=== PATIENT | female | born 1975 | race Caucasian/White ===

== ENCOUNTER → 2016-08-05 | Outpatient (CLI) | payer BC ==
--- NOTE | 2016-08-05 13:21 | XR ---
EXAMINATION TYPE: XR chest 2V DATE OF EXAM: 08/05/2016 COMPARISON: NONE HISTORY: Tachycardia on pleural effusion per order. TECHNIQUE: Frontal and lateral views of the chest are obtained. FINDINGS: There is no focal air space opacity, pleural effusion, or pneumothorax seen. The cardiac silhouette size is within normal limits. The osseous structures are intact. There is partial visual ization of surgical clips in the abdomen on 2 views. IMPRESSION: No acute cardiopulmonary process.
== END ==
LOC: RADXRMAIN 12:13
PROVIDERS: ATTEND Family Medicine
DX: R06.02 Shortness of breath (principal)
CPT/HCPCS: 71020

== ENCOUNTER → 2016-08-19 | Outpatient (CLI) | payer BC ==
--- NOTE | 2016-08-19 13:14 | CT ---
EXAMINATION TYPE: CT angio chest DATE OF EXAM: 08/19/2016 12:56 PM COMPARISON: NONE HISTORY: Tachycardia, SOB, wt gain CT DLP: 357.5 mGycm Automated exposure control for dose reduction was used. CONTRAST: CTA scan of the thorax is performed with IV Contrast, patient injected with 100 mL of Omnipaque 350, pulmonary embolism protocol. . FINDINGS: The lungs are clear. There is no significant axillary, internal mammary, mediastinal or hilar adenopathy. There is no evidence of pulmonary embolus. The aorta is normal in caliber without evidence of dissection. There is no pleural or pericardial fluid. Visualized portions of the upper abdomen are clear. There is minimal hypertrophic spondylosis within the spine. IMPRESSION: THIS EXAMINATION IS NEGATIVE FOR PULMONARY EMBOLUS.
== END | disposition home or self-care (01) ==
LOC: RADCTMAIN 12:05
PROVIDERS: ATTEND Family Medicine
DX: R00.0 Tachycardia, unspecified (principal)
CPT/HCPCS: 71275; Q9967

== ENCOUNTER → 2017-06-20 | Outpatient (CLI) | payer BC ==
--- NOTE | 2017-06-20 12:00 | XR ---
EXAMINATION TYPE: XR finger RT DATE OF EXAM: 06/20/2017 COMPARISON: NONE HISTORY: Right second digit infection pain. TECHNIQUE: 3 views of the second digit were performed FINDINGS: There is focal soft tissue swelling of the distal aspect of the second digit without subcut aneous emphysema or radiopaque foreign body. No evidence of acute fracture or dislocation of the seco nd digit. No periosteal reaction or cortical erosion to indicate radiographic sequela of osteomyeliti s. IMPRESSION: Focal soft tissue swelling of the distal aspect of the second digit with no current radio graphic sequela of osteomyelitis.
== END | disposition home or self-care (01) ==
LOC: RADXRMAIN 11:10
PROVIDERS: ATTEND Family Medicine
DX: M79.89 Other specified soft tissue disorders (principal)

== ENCOUNTER → 2017-08-25 | Outpatient (CLI) | payer BC ==
[2017-08-25 13:10] LABS: T4, Free (Free Thyroxine) 0.92 ng/dL (0.78-2.19)
[2017-08-31 04:37] LABS: Metanephrine, Free <25 pg/mL (< OR = 57); Normetanephrine, Free 54 pg/mL (< OR = 148); Total, Free (MN + NMN) 54 pg/mL (< OR = 205)
== END | disposition home or self-care (01) ==
LOC: LABWHC1 11:38
PROVIDERS: ATTEND Internal Medicine Clinical Cardiac Electrophysiology
DX: R00.2 Palpitations (principal)
CPT/HCPCS: 36415; 82088; 82533; 83835; 84439; 84443; 85652

== ENCOUNTER 2017-09-05 08:51 | Day surgery (SDC) | payer BC ==
[2017-09-01 09:31] VITALS: BMI 34.3
[~2017-09-05 08:51] MED LIST: SODIUM CHLORIDE 0.9% 1,000 ML IV SCH
[2017-09-05 08:59] VITALS: BP 127/78; RESP 16; TEMP 98.2
[2017-09-05] MEDS ORDERED: SODIUM CHLORIDE 0.9% 500 ML IV ONE (09:39)
[2017-09-05 11:21] VITALS: PULSE 99
--- NOTE | 2017-09-05 12:26 | P.PCN ---
Preoperative Diagnosis: Tilt table test procedure Indication for the procedure recurrent dizzy spells, near-syncope, rapid heartbeat Baseline Twelve-lead ECG Sinus rhythm 88 beats a minute normal RI narrow QRS normal ST segments Tilt table test Baseline blood pressure 124/67 mmHg, Baseline heart rate 88-98 beats a minute sinus rhythm, regular Patient was tilted upright and I'll of 70 per protocol there is a mild increase in heart rate to the low 100s ranging from 95-105 beats a minute, no change in blood pressure She was laid supine at the end of the procedure Impression Mild Orthostatic intolerance Mild increase in heart rate with upright position but did not meet criteria for postural tachycardia syndrome. No evidence for neurocardiogenic syncope No evidence for dysautonomia Plan Iwouldrecommend increasing fluid and saltintake core body strengthening, weight training especially of the lower extremity muscles, Endurance training rather than aerobic training I have prescribed nadolol between 10-20 mg by mouth daily for supportive therapy Discussed with the patient in detail Disposition: same day
== END 2017-09-05 11:21 | disposition home or self-care (01) ==
LOC: CATHEP 08:51
PROVIDERS: ATTEND Internal Medicine Clinical Cardiac Electrophysiology
DX: R42 Dizziness and giddiness (principal); R55 Syncope and collapse; R00.0 Tachycardia, unspecified; R00.2 Palpitations; Z82.49 Family history of ischemic heart disease and other diseases of the circulatory system; Z79.899 Other long term (current) drug therapy
CPT/HCPCS: 81025; 93660

== ENCOUNTER → 2018-02-17 | Outpatient (CLI) | payer BC ==
--- NOTE | 2018-02-17 14:07 | MM ---
Reason for exam: screening (asymptomatic). Baseline mammogram. History: Took hormonal contraceptives beginning at age 23. Physical Findings: Nurse did not find any significant physical abnormalities on exam. MG 3D Screening Mammo W/Cad Bilateral CC and MLO view(s) were taken. There are scattered fibroglandular densities. Benign appearing bilateral calcifications. No suspicious abnormality. These results were verbally communicated with the patient and result sheet given to the patient on 02/17/18. ASSESSMENT: Benign, BI-RAD 2 RECOMMENDATION: Routine screening mammogram of both breasts in 1 year.
== END | disposition home or self-care (01) ==
LOC: RADMAMWWP 13:10
PROVIDERS: ATTEND Family Medicine
DX: Z12.31 Encounter for screening mammogram for malignant neoplasm of breast (principal)
CPT/HCPCS: 77063; 77067

== ENCOUNTER → 2019-03-15 | Outpatient (CLI) | payer BC ==
--- NOTE | 2019-03-16 11:13 | MM ---
Reason for exam: screening (asymptomatic). Last mammogram was performed 1 year and 1 month ago. History: Taking hormonal contraceptives beginning at age 23. Physical Findings: A clinical breast exam by your physician is recommended on an annual basis and results should be correlated with mammographic findings. MG 3D Screening Mammo W/Cad Bilateral CC and MLO view(s) were taken. Prior study comparison: February 17, 2018, bilateral MG 3d screening mammo w/cad. There are scattered fibroglandular densities. Benign appearing bilateral calcifications. No suspicious abnormality. No significant changes when compared with prior studies. ASSESSMENT: Benign, BI-RAD 2 RECOMMENDATION: Routine screening mammogram of both breasts in 1 year.
== END | disposition home or self-care (01) ==
LOC: RADMAMWWP 08:38
PROVIDERS: ATTEND Family Medicine
DX: Z12.31 Encounter for screening mammogram for malignant neoplasm of breast (principal)
CPT/HCPCS: 77063; 77067

== ENCOUNTER → 2020-04-03 | Outpatient (CLI) | payer OTHER ==
--- NOTE | 2020-04-04 13:58 | MM ---
Reason for exam: screening (asymptomatic). Last mammogram was performed 1 year and 1 month ago. History: Taking hormonal contraceptives beginning at age 23. Physical Findings: A clinical breast exam by your physician is recommended on an annual basis and results should be correlated with mammographic findings. MG 3D Screening Mammo W/Cad Bilateral CC and MLO view(s) were taken. Prior study comparison: March 15, 2019, bilateral MG 3d screening mammo w/cad. February 17, 2018, bilateral MG 3d screening mammo w/cad. There are scattered fibroglandular densities. Stable benign calcifications. There is no discrete abnormality. No significant changes when compared with prior studies. ASSESSMENT: Benign, BI-RAD 2 RECOMMENDATION: Routine screening mammogram of both breasts in 1 year.
== END | disposition home or self-care (01) ==
LOC: RADMAMWWP 15:18
PROVIDERS: ATTEND Family Medicine
DX: Z12.31 Encounter for screening mammogram for malignant neoplasm of breast (principal)
CPT/HCPCS: 77063; 77067

== ENCOUNTER → 2022-07-12 | Outpatient (CLI) | payer OTHER ==
--- NOTE | 2022-07-13 08:05 | MM ---
Reason for Exam: Screening (asymptomatic). Last mammogram was performed 2 year(s) and 3 month(s) ago. Patient History: Menarche at age 13. First Full-Term at age 29. Perimenopausal. Currently using Hormonal Contraceptives, starting at age 23. Risk Values: Melina 5 year model risk: 0.9%. NCI Lifetime model risk: 11.7%. Prior Study Comparison: 02/17/2018 Bilateral Screening Mammogram, [facility]. 03/15/2019 Bilateral Screening Mammogram, [facility]. 04/03/2020 Bilateral Screening Mammogram, [facility]. Tissue Density: There are scattered fibroglandular densities. Findings: Analyzed By CAD. Pattern appears stable and symmetrical. No suspicious groups of microcalcifications, spiculated or lobular masses, architectural distortion or other secondary signs of malignancy are mammographically apparent. Overall Assessment: Benign, BI-RAD 2 Management: Screening Mammogram of both breasts in 1 year. A negative mammogram report should not preclude additional follow up of suspicious palpable abnormalities. Patient should continue monthly self breast exam. A clinical breast exam by your physician is recommended on an annual basis and results should be correlated with mammographic findings. Electronically signed and approved by: Naseem Dalton D.O. Radiologis
== END | disposition home or self-care (01) ==
LOC: RADMAMWWP 08:41
PROVIDERS: ATTEND Family Medicine
DX: Z12.31 Encounter for screening mammogram for malignant neoplasm of breast (principal)
CPT/HCPCS: 77063; 77067

== ENCOUNTER 2022-10-12 07:05 | Day surgery (SDC) | payer OTHER ==
[2022-10-05 15:45] VITALS: BMI 41.1
[2022-10-12] MEDS ORDERED: MIDAZOLAM 2 MG/2 ML VIAL IV PRN (07:14)
[2022-10-12] MEDS ORDERED: LIDOCAINE 1% (10MG/ML) FOR IV START INTRADERMA PRN (07:14)
[2022-10-12 07:33] VITALS: TEMP 97.6
[2022-10-12] MEDS: LACTATED RINGERS 1,000 ML IV SCH ×2 (07:38→08:38)
[2022-10-12] MEDS ORDERED: PROPOFOL 10 MG/ML 20 ML VIAL IV ONE (08:39)
[2022-10-12] MEDS ORDERED: LIDOCAINE 2% INJ 20 MG/ML (2 ML VIAL) ONE (08:39)
--- NOTE | 2022-10-12 09:04 | P.PCN ---
Date of Procedure: 10/12/22 Procedure(s) Performed: Brief history: Patient is a pleasant 47-year-old white female scheduled for an elective upper endoscopy as well as colonoscopy as a part of evaluation of GERD and screening for colon cancer Procedure performed: Esophagogastroduodenoscopy with biopsy Colonoscopy Preoperative diagnosis: GERD Screening for colon cancer Anesthesia: [facility] Procedure: After informed consent was obtained from the patient was brought into the endoscopy unit and IV sedation was administered by anesthesia under continuous monitoring. Initially upper endoscopy was done. The Olympus GF 160 video endoscope was inserted inserted into the mouth and esophagus intubated without any difficulty and was gradually advanced into the stomach and duodenum and carefully examined. The bulb and second part of the duodenum appeared normal. Biopsies were done from the duodenum to rule out celiac disease. The scope was then withdrawn into the stomach adequately insufflated with air and upon careful examination the antrum had patchy areas of erythema consistent with gastritis and biopsies were done from this area. body, cardia and fundus appeared normal. The scope was then withdrawn into the esophagus. The GE junction was located at 40 cm to the incisors. It appeared regular with no erythema erosions or ulcerations. Rest of the esophagus appeared normal. Patient tolerated the procedure well. At this time the patient continued to remain sedation. Initial digital rectal examination was normal. Olympus CF 160 video colonoscope was then inserted into the rectum and gradually advanced to the cecum without any difficulty. Careful examination was performed as the scope was gradually being withdrawn. The prep was excellent. Terminal ileum was intubated and 20 cm visualized and appeared normal. The cecum, ascending colon, transverse colon, descending colon, sigmoid colon and rectum appeared normal. Retroflexion was performed in the rectum and no lesions were noted. Patient tolerated the procedure well. Impression: 1. Upper endoscopy revealed mild antral gastritis but no evidence of esophagitis or Braswell's esophagus 2. Colonoscopy was within normal limits with no evidence of colitis or colorectal neoplasia Recommendations: Findings of this examination were discussed with the patient as well as her family. She was advised to follow with the biopsy results. She will continue with omeprazole 20 mg daily and follow antireflux measures. Recommend repeat screening colonoscopy in 10 years.
[2022-10-12 09:15] VITALS: RESP 20
[2022-10-12 10:01] VITALS: BP 130/80; PULSE 88
== END 2022-10-12 09:58 | disposition home or self-care (01) ==
LOC: ORWHC2ENDO 07:05
PROVIDERS: ATTEND Internal Medicine Gastroenterology
DX: Z12.11 Encounter for screening for malignant neoplasm of colon (principal); K29.50 Unspecified chronic gastritis without bleeding; K21.9 Gastro-esophageal reflux disease without esophagitis; G43.909 Migraine, unspecified, not intractable, without status migrainosus; Z79.83 Long term (current) use of bisphosphonates; Z79.899 Other long term (current) drug therapy
CPT/HCPCS: 81025; 88305; 84703; 45378; 43239; J2704; J2001

== ENCOUNTER → 2022-12-27 | Outpatient (CLI) | payer OTHER ==
--- NOTE | 2022-12-27 15:51 | XR ---
EXAMINATION TYPE: XR cervical spine limited DATE OF EXAM: 12/27/2022 3:22 PM INDICATION: Patient age:Female; 47 years old; Reason for study: M54.81 OCCIPITAL NEURALGIA; [facility]. COMPARISON: None TECHNIQUE: The cervical spine was imaged in frontal, lateral, and odontoid projections. FINDINGS: The osseous structures show normal alignment without evidence of an acute fracture. The intervertebra l disk spaces are preserved. Pedicles are intact. Soft tissues are within normal limits. The odonto id appears intact. IMPRESSION: No fracture or dislocation.
== END | disposition home or self-care (01) ==
LOC: RADXRMAIN 14:45
PROVIDERS: ATTEND Family Medicine
DX: M54.81 Occipital neuralgia (principal)
CPT/HCPCS: 72040

== ENCOUNTER 2023-01-05 18:38 | Emergency (ER) | payer OTHER ==
--- NOTE | 2023-01-05 19:53 | ED ---
General Adult HPI - General Source: patient, RN notes reviewed <Denae Gr - Last Filed: 01/05/23 19:48> <Claudine Savage - Last Filed: 01/06/23 03:52> - General Stated complaint: abd pain - History of Present Illness Initial comments: 47 year old female presents to the emergency department with chief complaint of right upper abdominal pain. Patient states that this has been going on for around 2 months. She states that it has been a burning sensation but states today that it has changed in character to a pain. She states that it has been constant. Denies vomiting. She does report history of cholecystectomy. (Denae Gr) 47-year-old female presenting with chief complaint of abdominal pain. Patient states that she has had a constant burning sensation to the right upper quadrant ongoing for the last 2 months. Patient states that the pain is worse today. No injury or trauma. No nausea or vomiting. No chest pain or difficulty breathing. No diarrhea or constipation. No fevers or chills. Surgical history includes cholecystectomy. (Claudine Savage) - Related Data Home Medications Medication Instructions Recorded Confirmed Milnacipran HCl [Savella] 50 mg PO QAM 06/06/14 10/05/22 Phentermine/Topiramate [Qsymia 15 1 each PO DAILY 06/06/14 10/12/22 mg-92 mg Capsule] ALPRAZolam [Xanax] 0.25 mg PO DAILY PRN 09/01/17 10/12/22 Control Pill ? Name/Dose 1 tab PO QAM 10/05/22 10/05/22 Cholecalciferol (Vitamin D3) 125 mcg PO DAILY 10/05/22 10/05/22 [Vitamin D3 (125 MCG = 5,000 IU)] Cyanocobalamin (Vitamin B-12) 1,000 mcg PO DAILY 10/05/22 10/05/22 [Vitamin B-12] Docusate [Colace] 100 mg PO DAILY 10/05/22 10/05/22 Ferrous Sulfate [Slow Fe] 45 mg PO DAILY 10/05/22 10/05/22 Omeprazole Magnesium [PriLOSEC OTC] 20 mg PO QAM 10/05/22 10/12/22 Rizatriptan Benzoate [Maxalt] 10 mg PO DIRECTED PRN 10/05/22 10/12/22 nadoloL 20 mg PO QAM 10/05/22 10/05/22 Allergies Allergy/AdvReac Type Severity Reaction Status Date / Time No Known Allergies Allergy Verified 01/05/23 20:31 Review of Systems ROS Other: All systems not noted in ROS Statement are negative. <Denae Gr - Last Filed: 01/05/23 19:48> ROS Other: All systems not noted in ROS Statement are negative. <Claudine Savage - Last Filed: 01/06/23 03:52> ROS Statement: Those systems with pertinent positive or pertinent negative responses have been documented in the HPI. Past Medical History Past Medical History: GERD/Reflux, Skin Disorder Additional Past Medical History / Comment(s): Patient states a lot of heartburn, acid reflux and projectile vomiting, took Prilosec for 3 months and it resolved, recurred again as soon as she tried to stop Prilosec about a week ago, so started taking it again. Patient states irregular bowel movements for last 2 years, states liquidy stool, urgency, blood on toilet tissue. Hx tachycardia, shortness of breath. High Trigylcerides. Iron Saturation low. Generalized body aches. Occasional migraines. Mild Eczema/Psoriasis. History of Any Multi-Drug Resistant Organisms: None Reported Past Surgical History: Cholecystectomy Additional Past Surgical History / Comment(s): Procedures to both legs for problems with veins. Past Anesthesia/Blood Transfusion Reactions: Motion Sickness Past Psychological History: Anxiety, Depression Smoking Status: Never smoker Past Alcohol Use History: Rare Past Drug Use History: None Reported - Past Family History Mother Family Medical History: AFIB, Blood Disorder, Cancer Additional Family Medical History / Comment(s): Thyroid cancer, melanoma skin cancer. <Denae Gr - Last Filed: 01/05/23 19:48> General Exam <Denae Gr - Last Filed: 01/05/23 19:48> Limitations: no limitations General appearance: alert, in no apparent distress Head exam: Present: atraumatic, normocephalic, normal inspection Eye exam: Present: normal appearance, EOMI Neck exam: Present: normal inspection, full ROM Respiratory exam: Present: normal lung sounds bilaterally. Absent: respiratory distress, wheezes, rales, rhonchi, stridor Cardiovascular Exam: Present: regular rate, normal rhythm, normal heart sounds. Absent: systolic murmur, diastolic murmur, rubs, gallop, clicks GI/Abdominal exam: Present: soft. Absent: distended, tenderness, guarding, rebound, rigid Neurological exam: Present: alert, oriented X3 Psychiatric exam: Present: normal affect, normal mood Skin exam: Present: warm, dry, intact, normal color. Absent: rash <Claudine Savage - Last Filed: 01/06/23 03:52> - General Exam Comments Initial Comments: Visual Physical Exam Vital signs reviewed General: Well-appearing, nontoxic, no acute distress. Head: Normocephalic, atraumatic Eyes: PERRLA, EOMI ENT: Airway patent Chest: Nonlabored breathing Skin: No visual rash, normal skin tone Neuro: Alert and oriented 3 Musculoskeletal: No gross abnormalities (Denae Gr) Course Vital Signs 01/05/23 01/06/23 20:26 02:46 Temperature 98.9 F 98.8 F Pulse Rate 93 81 Respiratory 18 16 Rate Blood Pressure 134/76 114/70 O2 Sat by Pulse 100 98 Oximetry Medical Decision Making <Denae Gr - Last Filed: 01/05/23 19:48> - Lab Data Result diagrams: 01/05/23 20:32 01/05/23 20:32 <Claudine Savage - Last Filed: 01/06/23 03:52> - Medical Decision Making I preformed the quick note portion of this chart. Electronically signed by Denae Gr PA-C. (Denae Gr) Was pt. sent in by a medical professional or institution ([facility], W[employer] CE[employer]AR STOCK CLERK, urgent care, hospital, or prison...) When possible be specific @ -No Did you speak to anyone other than the patient for history (EMS, parent, family, police, friend...)? What history was obtained from this source @ -No Did you review nursing and triage notes (agree or disagree)? Why? @ -I reviewed and agree with nursing and triage notes Were old charts reviewed (outside hosp., previous admission, EMS record, old EKG, old radiological studies, urgent care reports/EKG's, prison records)? Report findings @ -No old charts were reviewed Differential Diagnosis (chest pain, altered mental status, abdominal pain women, abdominal pain men, vaginal bleeding, weakness, fever, dyspnea, syncope, headache, dizziness, GI bleed, back pain, seizure, CVA, palpatations, mental health, musculoskeletal)? @ -[facility] Differential Abdominal Pain Women: Appendicitis, Cholecystitis, diverticulosis, ischemic bowel, pancreatitis, hepatitis, UTI, gastroenteritis, AAA, incarcerated hernia, bowel obstruction, constipation, inflammatory bowel, hepatitis, peptic ulcer disease, splenic infarction, perforated viscus, vulvitis, ovarian torsion, PID, kidney stone, placenta abruption... This is not meant to be an all-inclusive list EKG interpreted by me (3pts min.). @ -As above X-rays interpreted by me (1pt min.). @ -None done CT interpreted by me (1pt min.). @ -The liver is heterogenous with a suggestion of hepatic steatosis. No focal abnormality. Cholecystectomy. No biliary dilatation. No bowel obstruction. No asymmetric bowel mucosal abnormality. No free intraperitoneal fluid or pn eumoperitoneum. U/S interpreted by me (1pt. min.). @ -None done What testing was considered but not performed or refused? (CT, X-rays, U/S, labs )? Why? @ -None What meds were considered but not given or refused? Why? @ -None Did you discuss the management of the patient with other professionals (professionals i.e. , PA, W[employer] CE[employer]AR STOCK CLERK, lab, RT, psych nurse, social media intern, chief physical therapist, teacher, electorate officer, hospice case manager)? Give summary @ -No Was smoking cessation discussed for >3mins.? @ -No Was critical care preformed (if so, how long)? @ -No Were there social determinants of health that impacted care today? How? (Homelessness, low income, unemployed, alcoholism, drug addiction, transportation, low edu. Level, literacy, decrease access to med. care, fci, rehab)? @ -No Was there de-escalation of care discussed even if they declined (Discuss DNR or withdrawal of care, Hospice)? DNR status @ -No What co-morbidities impacted this encounter? (DM, HTN, Smoking, COPD, CAD, Cancer, CVA, ARF, Chemo, Hep., AIDS, mental health diagnosis, sleep apnea, morbid obesity)? @ -None Was patient admitted / discharged? Hospital course, mention meds given and route, prescriptions, significant lab abnormalities, going to OR and other pertinent info. @ -47-year-old female presenting with chief complaint of right upper quadrant pain. History of cholecystectomy. Pain is been ongoing for 2 months. Physical exam is conducted. WBC 15.4. CMP unremarkable. Urine shows signs of contamination with negative hCG. CT shows evidence of hepatic steatosis but no acute abnormality. Patient is educated on today's findings. Instructed to follow-up with PCP. Follow-up with PCP. Report back to ER with any new or worse riley symptoms. Discussed return parameters and answered all questions. Patient conveyed verbal understanding and agreed to the plan. I discussed this case in detail with my attending Dr. Alvares Undiagnosed new problem with uncertain prognosis? @ -No Drug Therapy requiring intensive monitoring for toxicity (Heparin, Nitro, Insulin, Cardizem)? @ -No Were any procedures done? @ -No Diagnosis/symptom? @ -Hepatic steatosis Acute, or Chronic, or Acute on Chronic? @ -Acute Uncomplicated (without systemic symptoms) or Complicated (systemic symptoms)? @ -uncomplicated Side effects of treatment? @ -No Exacerbation, Progression, or Severe Exacerbation? @ -No Poses a threat to life or bodily function? How? (Chest pain, [place], [place], pneumonia, PE, COPD, DKA, ARF, appy, cholecystitis, CVA, Diverticulitis, Homicidal, Suicidal, threat to staff... and all critical care pts) @ -Low likelihood (Claudine Savage) - Lab Data Lab Results 01/05/23 01/05/23 01/05/23 Range/Units 20:32 20:32 20:32 WBC 15.4 H (3.8-10.6) k/uL RBC 5.12 (3.80-5.40) m/uL Hgb 14.4 (11.4-16.0) gm/dL Hct 43.4 (34.0-46.0) % MCV 84.9 (80.0-100.0) fL MCH 28.2 (25.0-35.0) pg MCHC 33.3 (31.0-37.0) g/dL RDW 13.5 (11.5-15.5) % Plt Count 315 (150-450) k/uL MPV 7.5 Neutrophils % 65 % Lymphocytes % 26 % Monocytes % 5 % Eosinophils % 2 % Basophils % 0 % Neutrophils # 10.0 H (1.3-7.7) k/uL Lymphocytes # 4.1 (1.0-4.8) k/uL Monocytes # 0.7 (0-1.0) k/uL Eosinophils # 0.3 (0-0.7) k/uL Basophils # 0.0 (0-0.2) k/uL Sodium 138 (137-145) mmol/L Potassium 4.1 (3.5-5.1) mmol/L Chloride 104 (98-107) mmol/L Carbon Dioxide 22 (22-30) mmol/L Anion Gap 12 mmol/L BUN 13 (7-17) mg/dL Creatinine 0.56 (0.52-1.04) mg/dL Est GFR (CKD-EPI)AfAm >90 (>60 ml/min/1.73 sqM) Est GFR (CKD-EPI)NonAf >90 (>60 ml/min/1.73 sqM) Glucose 84 (74-99) mg/dL Plasma Lactic Acid Lico 1.1 (0.7-2.0) mmol/L Calcium 9.7 (8.4-10.2) mg/dL Total Bilirubin 0.4 (0.2-1.3) mg/dL AST 25 (14-36) U/L ALT 20 (4-34) U/L Alkaline Phosphatase 97 (38-126) U/L Total Protein 7.2 (6.3-8.2) g/dL Albumin 4.2 (3.5-5.0) g/dL Amylase 56 (30-110) U/L Lipase 94 (23-300) U/L Urine Color Urine Appearance (Clear) Urine pH (5.0-8.0) Ur Specific [place] (1.001-1.035) Urine Protein (Negative) Urine Glucose (UA) (Negative) Urine Ketones (Negative) Urine Blood (Negative) Urine Nitrite (Negative) Urine Bilirubin (Negative) Urine Urobilinogen (<2.0) mg/dL Ur Leukocyte Esterase (Negative) Urine RBC (0-5) /hpf Urine WBC (0-5) /hpf Ur Squamous Epith Cells (0-4) /hpf Urine Mucus (None) /hpf Urine HCG, Qual (Not Detectd) 01/05/23 01/05/23 Range/Units 20:32 21:25 WBC (3.8-10.6) k/uL RBC (3.80-5.40) m/uL Hgb (11.4-16.0) gm/dL Hct (34.0-46.0) % MCV (80.0-100.0) fL MCH (25.0-35.0) pg MCHC (31.0-37.0) g/dL RDW (11.5-15.5) % Plt Count (150-450) k/uL MPV Neutrophils % % Lymphocytes % % Monocytes % % Eosinophils % % Basophils % % Neutrophils # (1.3-7.7) k/uL Lymphocytes # (1.0-4.8) k/uL Monocytes # (0-1.0) k/uL Eosinophils # (0-0.7) k/uL Basophils # (0-0.2) k/uL Sodium (137-145) mmol/L Potassium (3.5-5.1) mmol/L Chloride (98-107) mmol/L Carbon Dioxide (22-30) mmol/L Anion Gap mmol/L BUN (7-17) mg/dL Creatinine (0.52-1.04) mg/dL Est GFR (CKD-EPI)AfAm (>60 ml/min/1.73 sqM) Est GFR (CKD-EPI)NonAf (>60 ml/min/1.73 sqM) Glucose (74-99) mg/dL Plasma Lactic Acid Lico (0.7-2.0) mmol/L Calcium (8.4-10.2) mg/dL Total Bilirubin (0.2-1.3) mg/dL AST (14-36) U/L ALT (4-34) U/L Alkaline Phosphatase (38-126) U/L Total Protein (6.3-8.2) g/dL Albumin (3.5-5.0) g/dL Amylase (30-110) U/L Lipase (23-300) U/L Urine Color Yellow Urine Appearance Turbid H (Clear) Urine pH 7.5 (5.0-8.0) Ur Specific [place] 1.020 (1.001-1.035) Urine Protein Trace H (Negative) Urine Glucose (UA) Negative (Negative) Urine Ketones Negative (Negative) Urine Blood Negative (Negative) Urine Nitrite Negative (Negative) Urine Bilirubin Negative (Negative) Urine Urobilinogen <2.0 (<2.0) mg/dL Ur Leukocyte Esterase Trace H (Negative) Urine RBC 4 (0-5) /hpf Urine WBC 1 (0-5) /hpf Ur Squamous Epith Cells 18 H (0-4) /hpf Urine Mucus Rare H (None) /hpf Urine HCG, Qual Not Detected (Not Detectd) Disposition <Denae Gr - Last Filed: 01/05/23 19:48> Is patient prescribed a controlled substance at d/c from ED?: No Time of Disposition: 02:21 <Claduine Savage - Last Filed: 01/06/23 03:52> Clinical Impression: Fatty liver Disposition: HOME SELF-CARE Condition: Good Instructions (If sedation given, give patient instructions): Non-Alcoholic Fatty Liver Disease (ED) Additional Instructions: Follow-up with PCP. Report back to ER with any new or worsening symptoms. Referrals: Kareem Rob DO [Primary Care Provider] - 1-2 days
[2023-01-05 21:06] LABS: Basophils % (A) 0 %; Eosinophils # (A) 0.3 k/uL (0-0.7); Eosinophils % (A) 2 %; HCT 43.4 % (34.0-46.0); HGB 14.4 gm/dL (11.4-16.0); Lymphocytes # (A) 4.1 k/uL (1.0-4.8); Lymphocytes % (A) 26 %; MCH 28.2 pg (25.0-35.0); MCHC 33.3 g/dL (31.0-37.0); MCV 84.9 fL (80.0-100.0); Mean Platelet Volume 7.5; Monocytes # (A) 0.7 k/uL (0-1.0); Monocytes % (A) 5 %; Neutrophils % (A) 65 %; Platelet Count 315 k/uL (150-450); RBC 5.12 m/uL (3.80-5.40); RDW 13.5 % (11.5-15.5); WBC 15.4 k/uL (3.8-10.6)
[2023-01-05 21:16] LABS: Appearance,Urine Turbid (Clear); Bilirubin,Urine Negative (Negative); Blood,Urine Negative (Negative); Color,Urine Yellow; Glucose,Urine (UA) Negative (Negative); Ketones,Urine Negative (Negative); Leukocyte Esterase,Urine Trace (Negative); Mucus,Urine Rare /hpf; Nitrite,Urine Negative (Negative); PH, Urine 7.5 (5.0-8.0); Protein,Urine Trace (Negative); RBC,Urine 4 /hpf (0-5); Squamous Epithelial Cell,Urine 18 /hpf (0-4); Urobilinogen,Urine <2.0 mg/dL (<2.0); WBC,Urine 1 /hpf (0-5)
[2023-01-05 21:35] LABS: ALT 20 U/L (4-34); AST 25 U/L (14-36); African American GFR (CKD) >90 (>60 ml/min/1.73 sqM); Albumin 4.2 g/dL (3.5-5.0); Alkaline Phosphatase 97 U/L (38-126); Amylase 56 U/L (30-110); Anion Gap 12 mmol/L; Blood Urea Nitrogen 13 mg/dL (7-17); Calcium 9.7 mg/dL (8.4-10.2); Carbon Dioxide 22 mmol/L (22-30); Chloride 104 mmol/L (98-107); Glucose 84 mg/dL (74-99); Lipase 94 U/L (23-300); Non-African American GFR(CKD) >90 (>60 ml/min/1.73 sqM); Potassium 4.1 mmol/L (3.5-5.1); Sodium 138 mmol/L (137-145); Total Bilirubin 0.4 mg/dL (0.2-1.3); Total Protein 7.2 g/dL (6.3-8.2)
--- NOTE | 2023-01-06 01:56 | CT ---
EXAM: CT Abdomen and Pelvis With Intravenous Contrast CLINICAL HISTORY: RUQ pain TECHNIQUE: Axial computed tomography images of the abdomen and pelvis with intravenous contrast. CTDI is 35.9 mGy and DLP is 1825.4 mGy-cm. This CT exam was performed using one or more of the following dose reduction techniques: automated exposure control, adjustment of the mA and/or kV according to patient size, and/or use of iterative reconstruction technique. COMPARISON: CT abdomen and pelvis with contrast dated 01/21/2010 FINDINGS: Lung bases: Unremarkable. No mass. No consolidation. ABDOMEN: Liver: The liver is heterogeneous with a suggestion of hepatic steatosis. No focal abnormality. Gallbladder and bile ducts: Cholecystectomy. No biliary dilatation. Pancreas: Unremarkable. No mass. No ductal dilation. Spleen: Unremarkable. No splenomegaly. Adrenals: Unremarkable. No mass. Kidneys and ureters: Unremarkable. No solid mass. No hydronephrosis. Stomach and bowel: Stomach is decompressed with minimal gas and fluid. No gastric mucosal thickening. No bowel obstruction. No asymmetric bowel mucosal abnormality. PELVIS: Appendix: A normal caliber appendix is noted extending inferiorly from the cecum. Bladder: Unremarkable. No mass. Reproductive: Unremarkable as visualized. ABDOMEN and PELVIS: Intraperitoneal space: Unremarkable. No free air. No significant fluid collection. Bones/joints: No acute fracture. No dislocation. Soft tissues: Unremarkable. Vasculature: Unremarkable. No abdominal aortic aneurysm. Lymph nodes: Unremarkable. No enlarged lymph nodes. IMPRESSION: 1. The liver is heterogeneous with a suggestion of hepatic steatosis. No focal abnormality. 2. Cholecystectomy. No biliary dilatation. 3. No bowel obstruction. No asymmetric bowel mucosal abnormality. No free intraperitoneal fluid or pneumoperitoneum.
[2023-01-06 02:52] VITALS: BP 114/70; PULSE 81; RESP 16; TEMP 98.8
== END 2023-01-06 02:46 | disposition home or self-care (01) ==
LOC: EC 18:38
DX: K76.0 Fatty (change of) liver, not elsewhere classified (principal); K21.9 Gastro-esophageal reflux disease without esophagitis; F41.9 Anxiety disorder, unspecified; F32.A Depression, unspecified; Z79.899 Other long term (current) drug therapy; Z90.49 Acquired absence of other specified parts of digestive tract
CPT/HCPCS: 36415; 74177; 80053; 81001; 81025; 82150; 83605; 83690; 85025; 99284

== ENCOUNTER → 2023-01-14 | Outpatient (CLI) | payer OTHER ==
--- NOTE | 2023-01-14 09:37 | US ---
EXAMINATION TYPE: US abdomen complete DATE OF EXAM: 01/14/2023 COMPARISON: CT 01/05/2023. CLINICAL INDICATION: Female, 47 years old with history of R10.11 RIGHT UPPER QUADRANT PAIN; Burning R UQ x 3 month that is constant; episodes of stabbing pain with nausea and vomiting. Hx of recent prote inuria; Recent CT showed fatty liver; Hx Chronic gastritis; Cholecystectomy 13 years ago. TECHNIQUE: Multiple sonographic images of the abdomen are obtained. FINDINGS: EXAM MEASUREMENTS: Liver Length: 18.4 cm Gallbladder Wall: NA cm CBD: 0.2 cm Spleen: 8.8 cm Right Kidney: 11.5 x 4.4 x 5.6 cm Left Kidney: 10.6 x 5.1 x 5.2 cm Pancreas: wnl Liver: wnl Gallbladder: Surgically Absent Evidence for sonographic Bennett's sign: No - pain in Right flank while scanning right kidney CBD: wnl Spleen: wnl Right Kidney: avascular echogenic lesion medial lower pole = 1.2 x 1.4 x 0.9 cm Left Kidney: wnl Upper IVC: wnl Abd Aorta: wnl The liver is homogenous. The intrahepatic portion of the IVC and proximal abdominal aorta are within normal limits. There is no evidence of cholelithiasis. Common bile duct is unremarkable. The visu alized portions of the pancreas are homogenous. The spleen is unremarkable. Kidneys are symmetric a nd free of hydronephrosis. No renal lesions are seen. IMPRESSION: 1. No evidence for acute process. 2. Right kidney hyperechoic area with no CT correlate could easily secondary to technique. Finding c ould represent fat interdigitating in the inferior pole.
[2023-01-14 21:12] LABS: Basophils # (A) 0.02 X 10*3/uL (0.00-0.10); Basophils % (A) 0.2 %; Eosinophils # (A) 0.23 X 10*3/uL (0.04-0.35); Eosinophils % (A) 2.3 %; HCT 40.7 % (37.2-46.3); HGB 13.1 g/dL (12.0-15.0); Lymphocytes # (A) 2.75 X 10*3/uL (0.90-5.00); Lymphocytes % (A) 27.6 %; MCH 27.1 pg (27.0-32.0); MCHC 32.2 g/dL (32.0-37.0); MCV 84.3 FL (80.0-97.0); Mean Platelet Volume 10.2 FL (9.5-12.2); Monocytes # (A) 0.84 X 10*3/uL (0.20-1.00); Monocytes % (A) 8.4 %; NRBC Per 100 WBC 0 X 10*3/uL (0.00-0.01); Neutrophils # (A) 6.08 X 10*3/uL (1.80-7.70); Neutrophils % (A) 61.1 %; Platelet Count 366 X 10*3/uL (140-440); RBC 4.83 X 10*6/uL (4.10-5.20); RDW 14.2 % (11.5-14.5); WBC 9.96 X 10*3/uL (4.50-10.00)
== END | disposition home or self-care (01) ==
LOC: RADUSWWP 08:55
PROVIDERS: ATTEND Family Medicine
DX: K76.0 Fatty (change of) liver, not elsewhere classified (principal); N28.89 Other specified disorders of kidney and ureter; K29.50 Unspecified chronic gastritis without bleeding; R10.11 Right upper quadrant pain; R53.82 Chronic fatigue, unspecified; Z90.49 Acquired absence of other specified parts of digestive tract
CPT/HCPCS: 76700; 85025

== ENCOUNTER → 2023-02-01 | Outpatient (CLI) | payer OTHER ==
--- NOTE | 2023-02-02 11:21 | CA ---
Transthoracic Echo Report Name: Martha Braxton Age: 47 Gender: F : 1975 Exam Date: 02/01/2023 16:11 Exam Location: [facility] Ht (in): 64 Wt (lb): 228 Ordering Physician: Kareem Rob DO Attending/Referring Phys: Julee Fernandez [facility] [employer] [place] Rodriges RDCS Procedure CPT: Indications: R01.1 CARDIAC MURMUR, UNSPECIFIED Cardiac Hx: Technical Quality: Fair Contrast 1: Total Dose (mL): Contrast 2: Total Dose (mL): MEASUREMENTS (Male / Female) Normal Values 2D ECHO LV Diastolic Diameter PLAX 4.2 cm 4.2 - 5.9 / 3.9 - 5.3 cm LV Systolic Diameter PLAX 2.0 cm IVS Diastolic Thickness 1.3 cm 0.6 - 1.0 / 0.6 - 0.9 cm LVPW Diastolic Thickness 1.2 cm 0.6 - 1.0 / 0.6 - 0.9 cm LV Relative Wall Thickness 0.6 RV Internal Dim ED PLAX 2.5 cm LA Volume 36.6 cm??? 18 - 58 / 22 - 52 cm??? LA Volume Index 16.6 cm???/m??? 16 - 28 cm???/m??? M-MODE Aortic Root Diameter MM 3.2 cm LA Systolic Diameter MM 3.8 cm LA Ao Ratio MM 1.2 AV Cusp Separation MM 2.1 cm DOPPLER AV Peak Velocity 123.2 cm/s AV Peak Gradient 6.1 mmHg AV Mean Velocity 91.0 cm/s AV Mean Gradient 3.5 mmHg AV Velocity Time Integral 24.3 cm LVOT Peak Velocity 108.9 cm/s LVOT Peak Gradient 4.7 mmHg LVOT Velocity Time Integral 21.8 cm MV Area PHT 5.4 cm??? Mitral E Point Velocity 110.1 cm/s Mitral A Point Velocity 78.8 cm/s Mitral E to A Ratio 1.4 MV Deceleration Time 139.2 ms MV E' Velocity 11.0 cm/s Mitral E to MV E' Ratio 10.0 TR Peak Velocity 200.9 cm/s TR Peak Gradient 16.1 mmHg Right Ventricular Systolic Press 19.9 mmHg FINDINGS Left Ventricle Mildly increased left ventricular wall thickness. Left ventricular cavity size normal. Normal left ventricular systolic function with no obvious regional wall motion abnormalities. Left ventricular ejection fraction is estimated at 55-60 %. Right Ventricle Normal right ventricular size and function. Right ventricular systolic pressure within normal limits. Right Atrium Normal right atrial size. Left Atrium Normal left atrial size. Mitral Valve Structurally normal mitral valve. No mitral stenosis. Mild mitral regurgitation. Aortic Valve Trileaflet aortic valve. No aortic valve stenosis or regurgitation. Tricuspid Valve Structurally normal tricuspid valve. Mild tricuspid regurgitation. Pulmonic Valve Trace pulmonic regurgitation. Pericardium No pericardial effusion. Aorta Normal size aortic root and proximal ascending aorta. CONCLUSIONS Normal LV systolic function No significant valvular abnormalities Normal pulmonary artery systolic pressure Previewed by: Dr. Joe Alvarez MD (Electronically Signed) Final Date: 02 February 2023 11:20
== END | disposition home or self-care (01) ==
LOC: RADECHMAIN 16:05
PROVIDERS: ATTEND Family Medicine
DX: R01.1 Cardiac murmur, unspecified (principal)
CPT/HCPCS: 93306

== ENCOUNTER → 2023-04-14 | Outpatient (CLI) | payer OTHER ==
--- NOTE | 2023-04-14 15:04 | P.SLEEP ---
History of Present Illness DATE: 04/14/2023 CONSULTATION/NEW PATIENT EVALUATION HISTORY OF PRESENT ILLNESS/SLEEP-WAKE EVALUATION: 47-year-old lady had been evaluated in the sleep center for multiple awakenings from sleep, tiredness and sleepiness during the day. SLEEP SCHEDULE: Usually sleep schedule from 10 PM to 5:40 AM on weekdays and from 11 PM to 9 AM on weekend. FALLING ASLEEP: No problems with falling asleep while patient is taking trazodone 150 mg at bedtime, she has TV set and bedroom. DURING SLEEP: Patient usually sleeps on the side position. No clear history of snoring patient wakes up from sleep up to 4 times with up to 3 episodes of nocturia. Possibly movements during the sleep, sometimes cover is out of bed. No history of hypnogogical hallucinations, sleep paralysis, or cataplexy. DURING THE DAY/WAKE STATE: Patient filled tiredness and sleepiness during the day, has problems with concentration. [place] sleepiness scale is 8. Patient is ready to take naps multiple times during the day. She feels refreshed after nap. PAST MEDICAL HISTORY: Tachycardia, acid reflux, gastritis, neck problems. PAST SURGICAL HISTORY: Cholecystectomy. MEDICATIONS: Omeprazole 20 mg once a day, metoprolol 20 mg once a day, trazodone 150 mg once a day before the bedtime, docusate 100 mg once a day, Xanax 0.25 mg as needed. SOCIAL HISTORY: Negative for smoking, alcohol consumption occasional. FAMILY HISTORY: Hypertension, heart problems, hyperlipidemia, sleep apnea, cancer, diabetes, thyroid problems. REVIEW OF SYSTEMS: Multiple awakenings from sleep, tiredness and sleepiness during the day. No fevers. No double vision. No recent chest pain. No shortness of breath. No abdominal pain. No bleeding episodes. No blood in urine. No seizure episodes. PHYSICAL EXAMINATION: GENERAL: A pleasant patient without any distress. VITAL SIGNS: BP 136/83 , HR 92 , RR 16 , weight 229.8 pounds, height 5 foot 4 inches, body mass index 39.3 . HEENT: PERRLA, EOMI. Evaluation of oropharynx showed tongue protrudes midline, low position of soft palate Mallampati 2, short distance between soft palate and posterior pharyngeal wall. NECK: Supple. No JVD. Thyroid is not palpable. 13.5 inches in circumference. LUNGS: Clear to percussion and to auscultation. Good air exchange. No wheezing or rhonchi. HEART: S1, S2 regular. No murmurs, gallops or rubs. ABDOMEN: Soft and nontender. Bowel sounds are present. No organomegaly appreciated. EXTREMITIES: No clubbing or cyanosis. POULTRY TENDER: Awake, alert, and oriented x3. Cranial nerves 2 to 7 intact. There is no fasciculation or atrophy noted. No focal deficits observed. ASSESSMENT: 1. Multiple awakenings from sleep, movements during the sleep. Possibly periodic limb movements. 2. Multiple awakenings from sleep possibly secondary to abnormalities of respiration, although no history of snoring. 3. Sleepiness during the day. Patient is 86 naps anytime during the day. Patient feels refreshed after. Differential diagnosis include to narcolepsy type II and hypersomnia. 4. Obesity BMI 39.3. 5 history of acid reflux and gastritis. 6 . Neck problems. 7. Status post cholecystectomy. PLAN: 1. Polysomnography for evaluation of patient's breathing during sleep and to check for possible periodic limb movements. Multiple sleep latency test if sleep study negative for physical abnormalities of sleep. 2. Following plan after reading sleep test. 3. Preferable position during sleep on the side. 4. No driving if patient feels any sleepiness. Patient is aware of civil and criminal liability for unsafe driving. 5. Sleep hygiene with regular sleep time for at least 7.5-8 hours. 6. Watching and losing weight. Thank you very much for referring this patient for consultation. Sincerely, Keegan Oliveros MD, PhD, FAASM. Diplomat of [place] [employer], Sleep Medicine Board by [employer] [place] [employer] Medicine Public Accountant of [facility] [place] Past Medical History Past Medical History: GERD/Reflux, Skin Disorder Additional Past Medical History / Comment(s): Patient states a lot of heartburn, acid reflux and projectile vomiting, took Prilosec for 3 months and it resolved, recurred again as soon as she tried to stop Prilosec about a week ago, so started taking it again. Patient states irregular bowel movements for last 2 years, states liquidy stool, urgency, blood on toilet tissue. Hx tachycardia, shortness of breath. High Trigylcerides. Iron Saturation low. Generalized body aches. Occasional migraines. Mild Eczema/Psoriasis. -leukocystosis History of Any Multi-Drug Resistant Organisms: None Reported Past Surgical History: Cholecystectomy Additional Past Surgical History / Comment(s): Procedures to both legs for problems with veins. Past Anesthesia/Blood Transfusion Reactions: Motion Sickness Past Psychological History: Anxiety, Depression Smoking Status: Never smoker Past Alcohol Use History: Rare Past Drug Use History: None Reported - Past Family History Mother Family Medical History: AFIB, Blood Disorder, Cancer Additional Family Medical History / Comment(s): Thyroid cancer, melanoma skin cancer. Medications and Allergies Home Medications Medication Instructions Recorded Confirmed Type Milnacipran HCl [Savella] 50 mg PO QAM 06/06/14 10/05/22 History Phentermine/Topiramate [Qsymia 15 1 each PO DAILY 06/06/14 10/12/22 History mg-92 mg Capsule] ALPRAZolam [Xanax] 0.25 mg PO DAILY PRN 09/01/17 10/12/22 History Control Pill ? Name/Dose 1 tab PO QAM 10/05/22 10/05/22 History Cholecalciferol (Vitamin D3) 125 mcg PO DAILY 10/05/22 10/05/22 History [Vitamin D3 (125 MCG = 5,000 IU)] Cyanocobalamin (Vitamin B-12) 1,000 mcg PO DAILY 10/05/22 10/05/22 History [Vitamin B-12] Docusate [Colace] 100 mg PO DAILY 10/05/22 10/05/22 History Ferrous Sulfate [Slow Fe] 45 mg PO DAILY 10/05/22 10/05/22 History Omeprazole Magnesium [PriLOSEC OTC] 20 mg PO QAM 10/05/22 10/12/22 History Rizatriptan Benzoate [Maxalt] 10 mg PO DIRECTED PRN 10/05/22 10/12/22 History nadoloL 20 mg PO QAM 10/05/22 10/05/22 History Allergies Allergy/AdvReac Type Severity Reaction Status Date / Time No Known Allergies Allergy Verified 01/05/23 20:31 Sleep Note - Sleep Note Sleep Note: Temperature: Pulse Rate: Respiratory Rate: Blood Pressure: SpO2: Height: Weight: BMI: Neck Circumference:
== END ==
LOC: 3 N SLEEP 14:05
PROVIDERS: ATTEND Internal Medicine
DX: G47.10 Hypersomnia, unspecified (principal); E66.9 Obesity, unspecified; K21.9 Gastro-esophageal reflux disease without esophagitis; M54.2 Cervicalgia; Z87.19 Personal history of other diseases of the digestive system; Z98.890 Other specified postprocedural states; Z90.49 Acquired absence of other specified parts of digestive tract; Z68.39 Body mass index [BMI] 39.0-39.9, adult; Z86.79 Personal history of other diseases of the circulatory system
CPT/HCPCS: 99211

== ENCOUNTER 2023-05-15 19:49 | Outpatient (CLI) | payer OTHER ==
[2023-05-16 12:59] LABS: Urine Alcohol Negative (Negative); Urine Barbiturate Negative (Negative); Urine Cocaine Negative (Negative); Urine Methadone Negative (Negative); Urine Opiates Negative (Negative); Urine Phencyclidine Negative (Negative)
--- NOTE | 2023-05-18 14:35 | P.PCN ---
Description of Procedure: POLYSOMNOGRAPHY AND MSLT REPORT PROCEDURE(S)/DATE(S): Polysomnography 05/15/2023, multiple sleep latency test 05/16/2023 CLINICAL: Patient has been seen in the sleep center for evaluation of obstructive sleep apnea-hypopnea syndrome. Please see my consultation. Sleep study has been done for evaluation of patient breathing during the sleep. PROCEDURE: The standard montage for clinical polysomnography included the electroencephalogram, the electrooculogram, the mentalis surface elec tromyography and Lead II cardiography. The respiratory battery consisted of measurements of nasal/buccal air flow, pressure transducer measurements from nose, thoracic and/or abdominal effort and intercostal surface electromyography. Video monitoring has been done to check for any parasomnia events. Nocturnal oxyhemoglobin saturations were obtained by finger oximetry. Step-oliveros titration with positive airway pressure was utilized to control the respiratory events, if necessary. RESULTS: During the diagnostic sleep study sleep efficiency was normal at 89.5%. Latency to sleep onset was normal 16.0 min. Sleep architecture showed stage NI was extremely short 0.5%, Delta sleep was slightly increased 21.5%, REM sleep was decreased to 11.9%. Respiratory channel showed 0 obstructive apneas, 0 mixed apneas, 1 central apneas, 0 hypopneas with lowest oxygen level 92%. Total apnea hypopnea index was 0.1. Heart rate was in the range between 77 and 86, average 82. EMG showed 0 periodic limb movements per hour. Multiple sleep latency test have been done on the following day and consisted from 5 naps. Patient fell asleep on all naps. Short sleep latency on first 2 naps, mean sleep latency 11.0 minutes no sleep onset REM. Have been documented. IMPRESSIONS: 1. No significant respiratory abnormalities have been documented during the sleep study, normal oxygenation during sleep. 2. No significant periodic limb movements have been documented. 3. During multiple sleep latency test patient fell asleep during naps, but mean sleep latency 11.0 minutes which is not in the range of pathological sleepiness and did not confirm diagnosis of possible narcolepsy. No sleep onset REM periods have been documented. Please see other impressions from consultation PLAN: 1. I will see patient for follow-up visit explained results of the testing and recommendations. 2. Losing weight program. 3. Sleep hygiene with regular time in bed for at least 7-1/2 hours. 4. No driving if feeling sleepiness. Thank you very much for allowing me to participate in the management of your patient. Sincerely, Keegan Oliveros MD, PhD, FAASM. Diplomat of [place] [employer], Sleep Medicine Board by [place] [employer] Medicine Human Service Coordinator of [facility] [place]
== END 2023-05-16 16:30 | disposition home or self-care (01) ==
LOC: 3 N SLEEP 19:49
PROVIDERS: ATTEND Internal Medicine
DX: G47.61 Periodic limb movement disorder (principal); G47.8 Other sleep disorders
CPT/HCPCS: 80306; 95805; 95810

== ENCOUNTER → 2023-06-02 | Outpatient (CLI) | payer OTHER ==
[2023-06-02 16:20] VITALS: BP 127/82; PULSE 88; RESP 16; TEMP 98.8
--- NOTE | 2023-06-02 16:43 | P.PN ---
Subjective DATE: 06/02/2023 FOLLOW UP VISIT. Patient returned to sleep center for follow-up visit to discuss results of the sleep studies and following plan. I discussed results of sleep studies with patient in details. Diagnostic polysomnogram showed normal respiration and no periodic limb movements. Following multiple sleep latency test which consisted from 5 naps showed mean sleep latency 11.0 minutes with no sleep onset REM., Which possibly may indicate some mild sleepiness but not in the range for diagnosis of hypersomnia or narcolepsy. Patient usually sleep schedule on weekdays from 10 PM to 5:40 AM which is about 7 hours and 40 minutes and on the weekend from 11 PM to 9 AM which is about 10 hours. Possibly amount of sleep time during the weekdays is not enough for the patient. [place] sleepiness scale is 8 today, which is in normal range. MEDICATIONS: 1. Metoprolol 20 mg once a day 2. Trazodone 150 mg once a day at bedtime 3. Omeprazole 20 mg once a day 4. Docusate 100 mg once a day 5. Xanax 0.25 mg as needed During physical exam: GENERAL: A pleasant patient without any distress. VITAL SIGNS: Please see below, weight 233.6 pounds. HEENT: PERRLA, EOMI. NECK: Supple. No JVD. LUNGS: Clear to percussion and to auscultation. Good air exchange. No wheezing or rhonchi. HEART: S1, S2 regular. ABDOMEN: Soft and nontender. EXTREMITIES: No clubbing or cyanosis. [employer] OFF[employer]ER [employer]ENITENTIARY: Awake, alert, and oriented x3. No focal deficit. Impressions: 1. No significant respiratory abnormalities by results of polysomnogram 2. No significant periodic limb movements. 3. Multiple sleep latency test confirmed mild sleepiness but not in the range to confirm diagnosis of idiopathic hypersomnia or narcolepsy. 4. Most probably insufficient amount of sleep during weekdays. 5. Obesity. 6. History of acid reflux and gastritis. 7. Neck problems. 8. Status post cholecystectomy. Plan: 1. Increase time in bed on weekdays to 8-1/2-9 hours. 2. Evaluation by primary care physician for possibility of ADHD. 3. Daytime naps permitted 4. Precautions related to driving. No driving if feel any sleepiness. Patient is aware about civil and criminal liability for unsafe driving, promised to follow recommendations. 5. Follow up visit in 4-6 months or earlier if patient has any problems. Thank you very much for allowing me to participate in the management of your patient. Keegan Oliveros MD, PhD, FAASM. Diplomat of [place] [employer] Medicine, Sleep Medicine Board by [place] [employer] Medicine Technical Service Representative of [facility] [place] Objective - Vital Signs Vital signs: Vital Signs Temp 98.8 F 06/02/23 15:50 Pulse 88 06/02/23 15:50 Resp 16 06/02/23 15:50 BP 127/82 06/02/23 15:50 Pulse Ox 99 06/02/23 15:50 FiO2
== END ==
LOC: 3 N SLEEP 15:20
PROVIDERS: ATTEND Internal Medicine
DX: G47.10 Hypersomnia, unspecified (principal); E66.9 Obesity, unspecified; M54.2 Cervicalgia; Z90.49 Acquired absence of other specified parts of digestive tract; Z87.19 Personal history of other diseases of the digestive system
CPT/HCPCS: 99212

== ENCOUNTER → 2023-07-14 | Outpatient (CLI) | payer OTHER ==
--- NOTE | 2023-07-17 20:31 | MM ---
Reason for Exam: Screening (asymptomatic). Last screening mammogram was performed 12 month(s) ago. Patient History: Menarche at age 13. First Full-Term at age 29. Perimenopausal. Currently using Hormonal Contraceptives, starting at age 23. Risk Values: Melina 5 year model risk: 1.0%. NCI Lifetime model risk: 11.6%. Prior Study Comparison: 03/15/2019 Bilateral Screening Mammogram, [facility]. 04/03/2020 Bilateral Screening Mammogram, [facility]. 07/12/2022 Bilateral MG 3D screening mammo w/cad, [facility]. Tissue Density: The breasts are almost entirely fatty. Findings: Analyzed By CAD. There is no suspicious group of microcalcifications or new suspicious mass in either breast. Overall Assessment: Negative, BI-RAD 1 Management: Screening Mammogram of both breasts in 1 year. . Patient should continue monthly self-breast exams. A clinical breast exam by your physician is recommended on an annual basis. This exam should not preclude additional follow-up of suspicious palpable abnormalities. Note on Melina scores and lifetime risk: 1. A Melina score greater than 3% is considered moderate risk. If this is the case, consider specialist referral to assess eligibility for a risk reducing agent. 2. If overall lifetime risk for the development of breast cancer is 20% or higher, the patient may qualify for future screening with alternating mammogram and breast MRI. Electronically signed and approved by: Melvin Luis M.D. Radiologist
== END | disposition home or self-care (01) ==
LOC: RADMAMWWP 16:00
PROVIDERS: ATTEND Family Medicine
DX: Z12.31 Encounter for screening mammogram for malignant neoplasm of breast (principal)
CPT/HCPCS: 77063; 77067

== ENCOUNTER → 2023-08-15 | Outpatient (CLI) | payer OTHER ==
--- NOTE | 2023-08-15 11:56 | CT ---
EXAMINATION TYPE: CT abdomen w con DATE OF EXAM: 08/15/2023 COMPARISON: 01/05/2023 HISTORY: rt kidney lesion, RLQ pain CT DLP: 1292 mGycm CONTRAST: CT scan of the abdomen is performed with Oral Contrast and with IV Contrast, patient injected with 10 0 mL of Isovue 300. FINDINGS: LUNG BASES-: No visible nodule. No infiltrate. LIVER/GB: The gallbladder is surgically absent. No space occupying hepatic lesion. Biliary tree is of normal caliber. PANCREAS: No inflammation. No distinct mass. SPLEEN: No splenic enlargement. No lesion seen. ADRENALS: No nodule. No thickening. KIDNEYS/BLADDER: No hydronephrosis. No nephrolithiasis. Small subcentimeter cyst mid pole right kid jhoan. No solid renal lesions identified. Urinary bladder grossly unremarkable. BOWEL: Visualized bowel loops are of normal caliber. LYMPH NODES: No greater than 1cm abdominal or p elvic lymph nodes are appreciated. AORTA: No significant abnormality. OSSEOUS STRUCTURES: No significant abnormality is seen. OTHER: No significant additional abnormality is seen. IMPRESSION: 1. Subcentimeter cyst right kidney. Otherwise unremarkable study. No acute process seen.
== END | disposition home or self-care (01) ==
LOC: RADCTMAIN 10:56
PROVIDERS: ATTEND Family Medicine
DX: N28.1 Cyst of kidney, acquired (principal)
CPT/HCPCS: 74160; Q9967

== ENCOUNTER → 2024-08-21 | Outpatient (CLI) | payer OTHER ==
--- NOTE | 2024-08-21 11:45 | MM ---
Reason for Exam: Screening (asymptomatic). Last mammogram was performed 1 year(s) and 1 month(s) ago. Patient History: Menarche at age 13. First Full-Term at age 29. Perimenopausal. Currently using Hormonal Contraceptives, starting at age 23. Risk Values: Melina 5 year model risk: 1.0%. NCI Lifetime model risk: 11.4%. Prior Study Comparison: 04/03/2020 Bilateral Screening Mammogram, [facility]. 07/12/2022 Bilateral MG 3D screening mammo w/cad, [facility]. 07/14/2023 Bilateral MG 3D screening mammo w/cad, [facility]. Tissue Density: There are scattered areas of fibroglandular density. Findings: Analyzed By CAD. Right breast: There is no suspicious group of microcalcifications or new suspicious mass. Left breast: There is no suspicious group of microcalcifications or new suspicious mass. Right breast: There is no suspicious group of microcalcifications or new suspicious mass. No finding to correlate with clear nipple discharge which is benign clinical finding. Left breast: There is no suspicious group of microcalcifications or new suspicious mass. Overall Assessment: Negative, BI-RAD 1 Management: Screening Mammogram of both breasts in [address] [facility] will attempt to contact patient to return for supplemental views and ultrasound if indicated. Patient should continue monthly self-breast exams. A clinical breast exam by your physician is recommended on an annual basis. This exam should not preclude additional follow-up of suspicious palpable abnormalities. Note on Melina scores and lifetime risk: 1. A Melina score greater than 3% is considered moderate risk. If this is the case, consider specialist referral to assess eligibility for a risk reducing agent. 2. If overall lifetime risk for the development of breast cancer is 20% or higher, the patient may qualify for future screening with alternating mammogram and breast MRI. [facility], , 08/21/2024 11:42 AM. Electronically signed and approved by: Forest Romero DO
== END | disposition home or self-care (01) ==
LOC: RADMAMWWP 10:04
PROVIDERS: ATTEND Family Medicine
DX: Z12.31 Encounter for screening mammogram for malignant neoplasm of breast (principal); R92.323 Mammographic fibroglandular density, bilateral breasts; Z79.3 Long term (current) use of hormonal contraceptives
CPT/HCPCS: 77063; 77067